=== PATIENT | female | born 2000 | race Caucasian/White ===

== ENCOUNTER → 2021-10-11 | Outpatient (CLI) | payer OTHER ==
[~2021-10-11] VITALS: Ht 170.2 cm; Wt 81.8 kg
[2021-10-11 17:58] VITALS: BP 120/87
[2021-10-11 17:59] VITALS: BP 120/87
[2021-10-11 19:12] VITALS: BP 113/72
--- NOTE | 2021-10-11 19:20 | NUR ---
IV fluids completed. V/S obtaine. Patient leaves ambulatory with friend in stable condition.
== END ==
LOC: AMSURD 17:33
DX: J02.9 Acute pharyngitis, unspecified (principal); R00.0 Tachycardia, unspecified; Z20.822 Contact with and (suspected) exposure to COVID-19
CPT/HCPCS: J7030